=== PATIENT | male | born 1955 | race Caucasian/White ===

== ENCOUNTER 2017-01-16 11:26 | Emergency (ER) | payer BC | END 2017-01-16 11:35 | disposition home or self-care (01) | LOC: ER 11:26 | PROC: 2W3SX1Z Immobilization of Right Foot using Splint (ICD-10-PCS; principal; 2017-01-16) | DX: S93.401A Sprain of unspecified ligament of right ankle, initial encounter (principal); W18.40XA Slipping, tripping and stumbling without falling, unspecified, initial encounter | CPT/HCPCS: 73610-RT; 99283 ==

== ENCOUNTER 2017-01-28 21:43 | Emergency (ER) | payer BC | END 2017-01-28 22:40 | disposition home or self-care (01) | LOC: ER 21:43 | DX: S93.401D Sprain of unspecified ligament of right ankle, subsequent encounter (principal); I10 Essential (primary) hypertension | CPT/HCPCS: 96372; 99283; J1170; J2405 ==